=== PATIENT | female | born 1990 | race Caucasian/White ===

== ENCOUNTER 2020-05-29 19:50 | Emergency (ER) | payer OTHER, SELFPAY ==
[2020-05-29 20:02] VITALS: BP 130/87; PULSE 72; RESP 18; TEMP 37; O2SAT 98
[2020-05-29] MEDS: DICYCLOMINE HCL 10 MG CAPSULE 20 MG PO (20:30)
[2020-05-29] MEDS: ONDANSETRON HCL ODT 4 MG TABLET PO (20:30)
[2020-05-29 20:57] LABS: Basophils Absolute Auto 0.03 K/mm3 (0.00-0.10); Basophils Percent Auto 0.3 % (0.0-1.0); Eosinophils Absolute Auto 0.06 K/mm3 (0.02-0.50); Eosinophils Percent Auto 0.7 % (1.0-6.0); Hematocrit 40.5 % (35.0-49.0); Hemoglobin 13.3 g/dL (12.0-15.0); Immature Granulocyte Absolute 0.04 K/mm3 (0.00-0.00); Immature Granulocyte Percent A 0.5 % (0.0-0.0); Lymphocytes Absolute Auto 1.19 K/mm3 (1.10-4.50); Lymphocytes Percent Auto 13.8 % (18.0-42.0); Mean Corpuscular HGB Conc 32.8 g/dL (32.0-36.0); Mean Corpuscular Hemoglobin 28.1 pg (27.0-31.0); Mean Corpuscular Volume 85.4 fL (78.0-102.0); Mean Platelet Volume 11.1 fl (9.2-11.8); Monocytes Absolute Auto 0.76 K/mm3 (0.10-0.90); Monocytes Percent Auto 8.8 % (2.0-11.0); Neutrophils Absolute Auto 6.5 K/mm3 (1.7-7.2); Neutrophils Percent Auto 75.9 % (50.0-70.0); Platelet Count Result 172 K/mm3 (150-420); Red Blood Count 4.74 M/mm3 (4.20-5.40); Red Cell Distribution Width 15.9 % (11.6-14.4); White Blood Count 8.6 K/mm3 (4.8-10.8)
[2020-05-29 21:05] LABS: Appearance Urine Clear (Clear); Blood Urine 3+ (Negative); Color Urine Yellow (Yellow); Glucose Urine UA Negative (Negative); Ketones Urine Negative (Negative); Nitrate Urine Negative (Negative); Protein Urine Trace (Negative); Specific Grav Ur > 1.030 (1.010-1.020); pH Urine 5.5 (5.0-8.0)
[2020-05-29 21:06] LABS: Add Urine Microscopic? YES; Bilirubin Urine Negative (Negative); Leukocyte Esterase Ur Negative (Negative); Squamous Epithelial Cell Urine Many /hpf (Few); Urobilinogen Urine 0.2 mg/dL (0.2-1.0); WBC Urine 0-3 /hpf (0-3)
[2020-05-29 21:07] LABS: Bacteria Urine Trace /hpf
[2020-05-29 21:13] LABS: Alanine Aminotransferase 21 U/L (14-59); Albumin Level 3.5 g/dL (3.4-5.0); Alkaline Phosphatase 76 U/L (46-116); Anion Gap 12 mmol/L (8-16); Aspartate Amino Transferase 14 U/L (15-37); Bilirubin,Total 0.3 mg/dL (0.00-1.00); Blood Urea Nitrogen 13 mg/dL (7-18); Calcium 8.6 mg/dL (8.5-10.1); Carbon Dioxide 25 mmol/L (21-32); Chloride 101 mmol/L (98-108); Estimated CRCL calculation 92 ml/min; Estimated Glomerular Filt Rate > 60; Glucose 99 mg/dL (70-99); Osmolality Calculated 286 mOsm/kg (285-295); Potassium 3.7 mmol/L (3.5-5.1); Sodium 138 mmol/L (136-145)
--- NOTE | 2020-05-29 21:32 | ED.NAVMDI ---
HPI - Nausea/Vomiting/Diarrhea General Chief complaint: Nausea/Vomiting/Diarrhea Stated complaint: possible food poisoning Source: patient Mode of arrival: ambulatory Limitations: no limitations History of Present Illness HPI Narrative: Patient comes in with after having nausea and vomiting at home. She ate out last pm and has had nausea and vomiting. This has since resolved. She now complains of abdominal pain and having frequent loose stools. Abdominal discomfort is moderately severe and ongoing. Cramping abdominal pain is moderately severe and ongoing. Nothing has made this better or worse at home. She has had crampy abdominal pain since last pm, late lat pm. MD elicited complaint: nausea, vomiting, diarrhea and abdominal pain Onset (ago): hour(s) Description of diarrhea: semi-solid Associated nausea: Yes Location of pain: diffuse Pain consistency: intermittent Severity: moderate Quality: cramping Exacerbating factors: none Relieving factors: none Related Data Allergies Allergy/AdvReac Type Severity Reaction Status Date / Time NSAIDS (Non-Steroidal Allergy Severe RENAL Verified 02/03/19 11:49 Anti-Inflamma FAILURE sulfamethoxazole Allergy Unknown Rash Verified 02/03/19 11:49 trimethoprim Allergy Unknown Rash Verified 02/03/19 11:49 Pecan Allergy Intermediate HIVES Uncoded 11/02/18 11:19 Review of Systems Constitutional: Constitutional: Reports no additional constitutional complaints Eyes: Eyes: Reports no additional eye complaints ENT: Reports system reviewed and no additional complaints, except as documented Cardiovascular: Cardiovascular: Reports no additional cardiovascular complaints Respiratory: Respiratory: Reports no additional respiratory complaints Gastrointestinal: Gastrointestinal: Reports no additional gastrointestinal complaints Genitourinary: Genitourinary: Reports no additional female genitourinary complaints Comments: denies urinary symptoms Musculoskeletal: Musculoskeletal: Reports no additional musculoskeletal complaints Integumentary/Breasts: Skin/Breast: Reports system reviewed and no additional complaints, except as docu Neurologic: Reports system reviewed and no additional complaints, except as documented Psychiatric: Psychiatric: Reports no additional psychiatric complaints Endocrine: Endocrine: Reports no additional endocrine complaints Hematologic/Lymphatic: Hematologic/Lymphatic: Reports no additional hematologic/lymphatic complaints Allergic/Immunologic: Allergic/Immunologic: Reports no additional allergic/immunologic complaints PMFSH Past Medical History Medical History Anxiety Depression Genitourinary disorder Decreased kidney function Goiter Surgical History Surgical History H/O adenoidectomy H/O tubal ligation History of lumpectomy Left breast History of tonsillectomy Family History Family History Mother Diabetes mellitus Chronic kidney disease Cervical cancer Father Hypertension Heart disease Hyperlipidemia Social History Social History Gender identity (if verbalized by the patient): Female Sexual Orientation (if Verbalized by the Patient): Straight or Heterosexual Exam Const: Orientation/consciousness: patient oriented x3 HENMT: Head: normal to inspection Ears: external ears normal General nose exam: Normal nares present Face and sinus: normal facial exam Mouth: Yes Normal oral and palatal mucosa present Throat: posterior oropharynx normal Eyes: Conjunctivae: conjunctivae normal Neck: Neck: normal visual inspection Chest: Chest palpation & inspection: normal inspection of the chest Resp: Effort & Inspection: normal respiratory effort Auscultation: clear to auscultation bilaterally Cardio: Rate: regular rate Rhythm: regular r
[2020-05-29 21:41] VITALS: BP 120/80; PULSE 80; RESP 18; TEMP 36.6; O2SAT 98
== END 2020-05-29 21:42 | disposition home or self-care (01) ==
PROVIDERS: Emergency Provider Emergency Medicine; PCP Nurse Practitioner Family
DX: A05.9 Bacterial foodborne intoxication, unspecified (principal)
CPT/HCPCS: 36415; 80053; 81001; 85025; 99283; A9270

== ENCOUNTER 2020-11-21 07:54 | Outpatient (CLI) | payer OTHER, SELFPAY ==
--- NOTE | ~2020-11-21 | MR_ITS ---
EXAMINATION: MR brain/brain stem wo con DATE: 11/21/2020 09:02 INDICATION: Headache. TECHNIQUE: Magnetic resonance imaging (MRI) of the brain and brainstem was performed without intraven ous contrast. Sequences included sagittal and axial T1-weighted FSE, axial diffusion-weighted FS EPI, axial T2*-weighted GRE, axial T2-weighted FLAIR Propeller, and axial T2-weighted Propeller. Apparent diffusion coefficient (ADC) maps were created. COMPARISON: None. FINDINGS: There is no intracranial hemorrhage, acute infarction, or abnormal intracranial mass lesion . The ventricles are normal in size. The orbits are normal. There is mild mucosal thickening in the p aranasal sinuses. The mastoid air cells are normal. IMPRESSION: 1. Normal brain. Reviewed, dictated and finalized at location A. IMPRESSION: 1. Normal brain.
[2020-11-21 08:13] LABS: Basophils Absolute Auto 0.05 K/mm3 (0.00-0.10); Basophils Percent Auto 0.7 % (0.0-1.0); Eosinophils Absolute Auto 0.14 K/mm3 (0.02-0.50); Eosinophils Percent Auto 1.9 % (1.0-6.0); Hematocrit 41.7 % (35.0-49.0); Hemoglobin 14.3 g/dL (12.0-15.0); Immature Granulocyte Absolute 0.02 K/mm3 (0.00-0.00); Immature Granulocyte Percent A 0.3 % (0.0-0.0); Lymphocytes Absolute Auto 2.26 K/mm3 (1.10-4.50); Lymphocytes Percent Auto 30.3 % (18.0-42.0); Mean Corpuscular HGB Conc 34.3 g/dL (32.0-36.0); Mean Corpuscular Hemoglobin 30.6 pg (27.0-31.0); Mean Corpuscular Volume 89.1 fL (78.0-102.0); Mean Platelet Volume 10.3 fl (9.2-11.8); Monocytes Absolute Auto 0.74 K/mm3 (0.10-0.90); Monocytes Percent Auto 9.9 % (2.0-11.0); Neutrophils Absolute Auto 4.2 K/mm3 (1.7-7.2); Neutrophils Percent Auto 56.9 % (50.0-70.0); Platelet Count Result 221 K/mm3 (150-420); Red Blood Count 4.68 M/mm3 (4.20-5.40); Red Cell Distribution Width 12.1 % (11.6-14.4); White Blood Count 7.5 K/mm3 (4.8-10.8)
[2020-11-21 09:08] LABS: Alanine Aminotransferase 24 U/L (14-59); Alkaline Phosphatase 65 U/L (46-116); Anion Gap 9 mmol/L (8-16); Aspartate Amino Transferase 15 U/L (15-37); Bilirubin,Total 0.4 mg/dL (0.00-1.00); Blood Urea Nitrogen 16 mg/dL (7-18); Calcium 9.4 mg/dL (8.5-10.1); Carbon Dioxide 27 mmol/L (21-32); Chloride 106 mmol/L (98-108); Cholesterol 123 mg/dL (0-200); Estimated Glomerular Filt Rate > 60; Glucose 85 mg/dL (70-99); HDL Direct 49 mg/dL (40-60); Iron 60 ug/dL (50-170); LDL Cholesterol Calculated 64 mg/dL (<130); Osmolality Calculated 294 mOsm/kg (285-295); Percent Iron Saturation 19 % (12-57); Potassium 4.5 mmol/L (3.5-5.1); Sodium 142 mmol/L (136-145); Thyroid Stimulating Hormone 1.07 uIU/mL (0.36-3.74); Total Protein 6.9 g/dL (6.4-8.2); Triglycerides 50 mg/dL (0-150); Vitamin B12 437 pg/mL (193-986)
== END 2020-11-21 07:55 | disposition home or self-care (01) ==
PROVIDERS: PCP Physician Assistant; Visit Provider Physician Assistant
DX: R51.9 Headache, unspecified (principal); R53.83 Other fatigue; Z13.220 Encounter for screening for lipoid disorders
CPT/HCPCS: 36415; 70551; 80053; 80061; 82607; 83540; 83550; 84443; 85025

== ENCOUNTER 2020-12-26 09:20 | Outpatient (CLI) | payer OTHER, SELFPAY ==
[2020-12-26 10:34] LABS: Free T4 Free Thyroxine 0.89 ng/dL (0.76-1.46)
[2020-12-29 10:56] LABS: Total Triiodothyronine (T3) 108.4 ng/dL (76-181)
[2020-12-30 06:25] LABS: FSH 8.6 mIU/mL (***)
[2020-12-30 11:59] LABS: Testosterone Total 20 ng/dL (2-45)
[2020-12-30 13:55] LABS: Sex Hormone Binding Globulin 29 nmol/L (17-124)
[2021-01-02 02:16] LABS: Estriol <0.10 ng/mL
== END 2020-12-26 09:21 | disposition home or self-care (01) ==
LOC: CHSLAB 09:21
PROVIDERS: PCP Physician Assistant; Visit Provider Physician Assistant
DX: L83 Acanthosis nigricans (principal); R53.83 Other fatigue
CPT/HCPCS: 36415; 82677; 83001; 84270; 84403; 84439; 84443; 84480

== ENCOUNTER 2021-04-27 09:44 | Outpatient (CLI) | payer OTHER, SELFPAY ==
[2021-04-27 10:16] LABS: Basophils Absolute Auto 0.05 K/mm3 (0.00-0.10); Basophils Percent Auto 0.7 % (0.0-1.0); Eosinophils Absolute Auto 0.11 K/mm3 (0.02-0.50); Eosinophils Percent Auto 1.6 % (1.0-6.0); Hematocrit 42.8 % (35.0-49.0); Hemoglobin 14.5 g/dL (12.0-15.0); Immature Granulocyte Absolute 0.02 K/mm3 (0.00-0.00); Immature Granulocyte Percent A 0.3 % (0.0-0.0); Lymphocytes Absolute Auto 1.75 K/mm3 (1.10-4.50); Lymphocytes Percent Auto 24.8 % (18.0-42.0); Mean Corpuscular HGB Conc 33.9 g/dL (32.0-36.0); Mean Corpuscular Hemoglobin 30.5 pg (27.0-31.0); Mean Corpuscular Volume 89.9 fL (78.0-102.0); Mean Platelet Volume 10.6 fl (9.2-11.8); Monocytes Absolute Auto 0.58 K/mm3 (0.10-0.90); Monocytes Percent Auto 8.2 % (2.0-11.0); Neutrophils Absolute Auto 4.6 K/mm3 (1.7-7.2); Neutrophils Percent Auto 64.4 % (50.0-70.0); Platelet Count Result 205 K/mm3 (150-420); Red Blood Count 4.76 M/mm3 (4.20-5.40); White Blood Count 7.1 K/mm3 (4.8-10.8)
[2021-04-27 10:35] LABS: Add Urine Microscopic? YES; Appearance Urine Sl Cloudy (Clear); Bilirubin Urine Negative (Negative); Blood Urine Negative (Negative); Color Urine Light Yellow (Yellow); Glucose Urine UA Negative (Negative); Ketones Urine Negative (Negative); Leukocyte Esterase Ur Trace (Negative); Nitrate Urine Negative (Negative); Protein Urine Negative (Negative); Urobilinogen Urine 0.2 mg/dL (0.2-1.0); pH Urine 7.5 (5.0-8.0)
[2021-04-27 11:06] LABS: Creatine Kinase 40 U/L (26-192)
[2021-04-27 11:07] LABS: CRP < 0.2 mg/dL (0.0-0.9)
[2021-04-27 11:25] LABS: RBC Urine None seen /hpf (0-2); Squamous Epithelial Cell Urine Few /hpf (Few); WBC Urine 0-3 /hpf (0-3)
[2021-04-27 11:26] LABS: Amorphous Sediment Urine Heavy; Bacteria Urine Trace /hpf
[2021-04-29 13:25] LABS: Aldolase 2.3 U/L (<=8.1)
[2021-04-29 15:59] LABS: Myoglobin, Urine <27 mcg/L (<28)
[2021-04-29 21:52] LABS: SM Antibody <1.0; SM/RNP Antibody <1.0
[2021-04-29 22:59] LABS: Histone Antibody <1.0 U (<1.0)
[2021-04-30 04:20] LABS: Anti Nuclear Antibody Titer 1:40 (Negative)
[2021-04-30 04:51] LABS: Lupus dRVVT 1:1 Mix Interpreta Not Indicated; Lupus dRVVT Screen 43 sec (<=45); PTT-LA Screen 37 sec (<=40)
== END 2021-04-27 09:45 | disposition home or self-care (01) ==
LOC: CHSLAB 09:47
PROVIDERS: PCP Physician Assistant; Visit Provider Internal Medicine Rheumatology
DX: R76.8 Other specified abnormal immunological findings in serum (principal)
CPT/HCPCS: 36415; 81001; 82085; 82550; 83516; 83874; 85025; 85613; 85730; 86038; 86039; 86140; 86225; 86235

== ENCOUNTER 2021-06-15 19:17 | Emergency (ER) | payer OTHER, SELFPAY ==
--- NOTE | 2021-06-15 19:52 | ED.GENADULT ---
HPI - General Adult General Chief complaint: Shortness of Breath/Dyspnea Stated complaint: WEAKNESS,SOB,disoriented Time Seen by Provider: 06/15/21 19:52 Source: patient History of Present Illness HPI narrative: 31 year female with anxiety / depression, pseudotumor cerebri on Diamox presents to the ER with 5 day history of -- not feeling well -- generalized weakness especially of her legs -- chest congestion 5 days ago which has resolved. Patient thinks that her kids had a similar infection passed it on to. No fever chills. No chest pain or shortness of breath no nausea/ vomiting /abdominal pain or diarrhea no headache or focal neuro deficits. Onset (ago): day(s) ( started 5 days ago) Severity: moderate Treatments prior to arrival: none Related Data Home Medications Medication Instructions Recorded Confirmed acetazolamide 1,000 mg PO DAILY 06/15/21 06/15/21 dextroamphetamine-amphetamine 10 mg PO DAILY 06/15/21 06/15/21 Allergies Allergy/AdvReac Type Severity Reaction Status Date / Time NSAIDS (Non-Steroidal Allergy Severe RENAL Verified 06/15/21 19:59 Anti-Inflamma FAILURE sulfamethoxazole Allergy Unknown Rash Verified 06/15/21 19:59 trimethoprim Allergy Unknown Rash Verified 06/15/21 19:59 Pecan Allergy Intermediate HIVES Uncoded 11/02/18 11:19 Review of Systems Review of Systems: All systems reviewed & are unremarkable except as noted in HPI and below Constitutional: Constitutional: Reports as per HPI and Reports no additional constitutional complaints Eyes: Eyes: Reports as per HPI and Reports no additional eye complaints ENT: Reports system reviewed and no additional complaints, except as documented and Reports as per HPI Comments: Generalized weakness. Malaise. Cardiovascular: Cardiovascular: Reports as per HPI and Reports no additional cardiovascular complaints Respiratory: Respiratory: Reports as per HPI and Reports no additional respiratory complaints Gastrointestinal: Gastrointestinal: Reports as per HPI and Reports no additional gastrointestinal complaints Genitourinary: Genitourinary: Reports no additional female genitourinary complaints Musculoskeletal: Musculoskeletal: Reports no additional musculoskeletal complaints and Reports as per HPI Integumentary/Breasts: Skin/Breast: Reports system reviewed and no additional complaints, except as docu and Reports as per HPI Neurologic: Reports system reviewed and no additional complaints, except as documented and Reports as per HPI Psychiatric: Psychiatric: Reports no additional psychiatric complaints and Reports as per HPI Endocrine: Endocrine: Reports no additional endocrine complaints and Reports as per HPI Hematologic/Lymphatic: Hematologic/Lymphatic: Reports no additional hematologic/lymphatic complaints and Reports as per HPI Allergic/Immunologic: Allergic/Immunologic: Reports no additional allergic/immunologic complaints and Reports as per HPI [facility] Past Medical History Medical History Anxiety Depression Genitourinary disorder Decreased kidney function Goiter Surgical History Surgical History H/O adenoidectomy H/O tubal ligation History of lumpectomy Left breast History of tonsillectomy Family History Family History Mother Diabetes mellitus Chronic kidney disease Cervical cancer Father Hypertension Heart disease Hyperlipidemia Social History Social History Gender identity (if verbalized by the patient): Female Sexual Orientation (if Verbalized by the Patient): Straight or Heterosexual Exam Const: General: no acute distress and alert Orientation/consciousness: patient oriented x3 HENMT: Head: normal to inspection Eyes: Conjunctivae: conjunctivae normal Pupils: Equal, ro
[2021-06-15 20:00] VITALS: BP 135/96; PULSE 83; RESP 20; TEMP 37.2; O2SAT 99
[2021-06-15 20:26] LABS: Basophils Absolute Auto 0.02 K/mm3 (0.00-0.10); Basophils Percent Auto 0.3 % (0.0-1.0); Eosinophils Absolute Auto 0.07 K/mm3 (0.02-0.50); Eosinophils Percent Auto 1.2 % (1.0-6.0); Hematocrit 43.1 % (35.0-49.0); Hemoglobin 14.4 g/dL (12.0-15.0); Immature Granulocyte Absolute 0.02 K/mm3 (0.00-0.00); Immature Granulocyte Percent A 0.3 % (0.0-0.0); Lymphocytes Absolute Auto 2.07 K/mm3 (1.10-4.50); Lymphocytes Percent Auto 35.1 % (18.0-42.0); Mean Corpuscular HGB Conc 33.4 g/dL (32.0-36.0); Mean Corpuscular Hemoglobin 29.6 pg (27.0-31.0); Mean Corpuscular Volume 88.7 fL (78.0-102.0); Mean Platelet Volume 11.1 fl (9.2-11.8); Monocytes Percent Auto 8.5 % (2.0-11.0); Neutrophils Absolute Auto 3.2 K/mm3 (1.7-7.2); Neutrophils Percent Auto 54.6 % (50.0-70.0); Platelet Count Result 172 K/mm3 (150-420); Red Blood Count 4.86 M/mm3 (4.20-5.40); Red Cell Distribution Width 11.9 % (11.6-14.4); White Blood Count 5.9 K/mm3 (4.8-10.8)
[2021-06-15 20:31] LABS: Prothrombin Time 10.8 Seconds (9.50-12.10)
[2021-06-15 20:37] LABS: Alanine Aminotransferase 13 U/L (14-59); Albumin Level 3.6 g/dL (3.4-5.0); Alkaline Phosphatase 61 U/L (46-116); Anion Gap 12 mmol/L (8-16); Aspartate Amino Transferase 14 U/L (15-37); Bilirubin,Total 0.3 mg/dL (0.00-1.00); Blood Urea Nitrogen 11 mg/dL (7-18); Carbon Dioxide 20 mmol/L (21-32); Chloride 105 mmol/L (98-108); Estimated Glomerular Filt Rate > 60; Glucose 126 mg/dL (70-99); Osmolality Calculated 285 mOsm/kg (285-295); Potassium 3.3 mmol/L (3.5-5.1); Sodium 137 mmol/L (136-145); Total Protein 6.9 g/dL (6.4-8.2)
[2021-06-15 20:42] LABS: Lactic Acid Reflex 0.8 mmol/L (0.4-2.0)
[2021-06-15 20:45] LABS: Lipase 89 U/L (73-393); Thyroid Stimulating Hormone 2.37 uIU/mL (0.36-3.74)
[2021-06-15 20:46] LABS: Troponin I < 4.0 ng/L (0.00-60.4)
[2021-06-15 20:57] LABS: Influenza A QL RT-PCR Negative (Negative); Influenza B QL RT-PCR Negative (Negative); SARS-CoV-2 RNA PCR Negative (Negative)
[2021-06-15 21:40] LABS: Add Urine Microscopic? NO; Appearance Urine Clear (Clear); Bilirubin Urine Negative (Negative); Blood Urine Negative (Negative); Color Urine Yellow (Yellow); Glucose Urine UA Negative (Negative); Ketones Urine Negative (Negative); Leukocyte Esterase Ur Negative (Negative); Nitrate Urine Negative (Negative); Protein Urine Negative (Negative); Urobilinogen Urine 0.2 mg/dL (0.2-1.0); pH Urine 5.5 (5.0-8.0)
[2021-06-15] MEDS: POTASSIUM CHLORIDE 20 MEQ TABLET PO (21:41)
[2021-06-15 22:03] VITALS: BP 117/84; PULSE 72; RESP 19; TEMP 36.7; O2SAT 98
== END 2021-06-15 22:04 | disposition home or self-care (01) ==
PROVIDERS: Emergency Provider Internal Medicine Critical Care Medicine; PCP Physician Assistant
DX: B34.9 Viral infection, unspecified (principal); E87.6 Hypokalemia; Z20.822 Contact with and (suspected) exposure to COVID-19
CPT/HCPCS: 36415; 80053; 81003; 83605; 83690; 84443; 84484; 85025; 85610; 87502; 99284; A9270; C9803; U0003; U0005

== ENCOUNTER 2021-08-11 14:05 | Outpatient (CLI) | payer OTHER, SELFPAY ==
[2021-08-17 07:22] LABS: Anti Nuclear Antibody Pattern Nuclear, Speckled
== END 2021-08-11 14:06 | disposition home or self-care (01) ==
LOC: CHSLAB 14:11
PROVIDERS: PCP Physician Assistant; Visit Provider Internal Medicine Rheumatology
DX: R76.8 Other specified abnormal immunological findings in serum (principal)
CPT/HCPCS: 36415; 86038; 86039

== ENCOUNTER 2021-08-16 14:00 | Outpatient (CLI) | payer OTHER, SELFPAY ==
--- NOTE | 2021-08-19 11:31 | WPDHOLTEREM ---
Holter/Event Monitor Holter/Event Monitor Date of procedure: 08/16/21 Holter/Event Procedure: 48 Hr Holter Monitor Indications: Palpitations Conclusion: 1. 48 hour holter monitor on 08/16/21. 2. Underlying rhythm is sinus rhythm with sinus arrhythmia, HR range 48-154 bpm; average HR 83 bpm. HR at 154 bpm was at 12:24 pm. 3. There are 4 premature supraventricular complexes, 1 supraventricular couplet. No supraventricular tachycardia. 4. There is 1 premature ventricular complex. No ventricular tachycardia. 5. No sinoatrial or atrioventricular blocks. No signficant pauses greater than 2 seconds. 6. No symptoms available for correlation.
== END 2021-08-16 14:01 | disposition home or self-care (01) ==
LOC: CHSCARD 14:02
PROVIDERS: PCP Physician Assistant; Visit Provider Physician Assistant
DX: R00.2 Palpitations (principal)
CPT/HCPCS: 93225

== ENCOUNTER 2021-08-25 07:59 | Emergency (ER) | payer OTHER, SELFPAY ==
[2021-08-25 08:05] VITALS: BP 126/60; PULSE 120; RESP 18; TEMP 36.8; O2SAT 98
--- NOTE | 2021-08-25 08:23 | ED.ARRPALP ---
HPI - Arrhythmia/Palpitations General Chief Complaint: Arrhythmia/Palpitations Stated Complaint: SOB/ high heart rate/ heart fluttering Time Seen by Provider: 08/25/21 08:24 Source: patient Mode of arrival: ambulatory Limitations: no limitations History of Present Illness complaint: heart racing and palpitations Onset (ago): month(s) (2) Duration: intermittent Severity: moderate Context: occurred during rest Associated symptoms: shortness of breath Related Data Home Medications Medication Instructions Recorded Confirmed bupropion HCl 150 mg 24 hr tablet, 150 tablet PO DAILY 08/25/21 08/25/21 extended release Allergies Allergy/AdvReac Type Severity Reaction Status Date / Time NSAIDS (Non-Steroidal Allergy Severe RENAL Verified 08/25/21 08:30 Anti-Inflamma FAILURE sulfamethoxazole Allergy Unknown Rash Verified 08/25/21 08:30 trimethoprim Allergy Unknown Rash Verified 08/25/21 08:30 Pecan Allergy Intermediate HIVES Uncoded 11/02/18 11:19 Review of Systems Review of Systems: All systems reviewed & are unremarkable except as noted in HPI and below Cardiovascular: Cardiovascular: Reports as per HPI and Denies chest pain Gastrointestinal: Gastrointestinal: Denies nausea and Denies vomiting PMFSH Past Medical History Medical History Anxiety Depression Genitourinary disorder Decreased kidney function Goiter Surgical History Surgical History H/O adenoidectomy H/O tubal ligation History of lumpectomy Left breast History of tonsillectomy Family History Family History Mother Diabetes mellitus Chronic kidney disease Cervical cancer Father Hypertension Heart disease Hyperlipidemia Social History Social History (Updated 08/25/21 @ 10:07 by Jl Orozco MD) Smoking status: Current every day smoker Tobacco type: e-cigarettes/vaping Substance use: current Substance use type: marijuana Gender identity (if verbalized by the patient): Female Sexual Orientation (if Verbalized by the Patient): Straight or Heterosexual Exam Const: General: healthy appearing, no acute distress and alert Nutritional Appearance: well nourished Orientation/consciousness: patient oriented x3 Limitations: no limitations Other: Female tech in room during examination. HENMT: Head: normal to inspection Ears: external ears normal Eyes: Conjunctivae: conjunctivae normal Pupils: Equal, round and reactive pupils present EOM: EOMs intact bilaterally Neck: Neck: normal visual inspection Resp: Effort & Inspection: normal respiratory effort Auscultation: clear to auscultation bilaterally Cardio: Rate: tachycardic Rhythm: regular rhythm GI: GI Palp: Yes Soft to palpation and No Tenderness to palpation present (GI) Auscultation: normal bowel sounds Back/Spine/Pelvis: Cervical Spine: cervical ROM normal Thoracic/Lumbar Spine: thoraco-lumbar ROM normal Skin: General skin exam: normal color Rashes: no rashes Neuro: General: patient oriented x3, moves all extremities, no focal motor deficits and CN's II-XI intact bilaterally Speech: normal speech Gait exam (Neuro): Normal gait present Extrem: General: normal to inspection and no clubbing, cyanosis or edema Psych: Mental Status: mental status grossly normal Affect: normal affect Attitude: cooperative Course Vital Signs Vital signs: Vital Signs Temperature 36.8 C 08/25/21 08:05 Pulse Rate 120 H 08/25/21 08:05 Respiratory Rate 18 08/25/21 08:05 Blood Pressure 126/60 08/25/21 08:05 Pulse Oximetry 98 08/25/21 08:05 Oxygen Delivery Room Air 08/25/21 08:05 Temperature 36.8 C 08/25/21 08:05 Pulse Rate 92 08/25/21 10:08 Respiratory Rate 16 08/25/21 10:06 Blood Pressure 119/68 08/25/21 10:08 Pulse Oximetry 99 08/25/21 10:06 Oxygen Delivery Room A
--- NOTE | 2021-08-25 08:32 | ECG_ITS ---
Measurements Intervals [place] Rate: 117 P: 69 SD: 156 QRS: 64 QRSD: 86 T: 49 QT: 307 QTc: 429 Interpretive Statements SINUS TACHYCARDIA BORDERLINE ECG NO PREVIOUS ECG AVAILABLE FOR COMPARISON Electronically Signed On 08-25-2021 15:06:08 CDT by Ramu Paz M.D.
[2021-08-25 08:53] LABS: Basophils Absolute Auto 0.02 K/mm3 (0.00-0.10); Basophils Percent Auto 0.4 % (0.0-1.0); Eosinophils Absolute Auto 0.02 K/mm3 (0.02-0.50); Eosinophils Percent Auto 0.4 % (1.0-6.0); Hematocrit 40.6 % (35.0-49.0); Hemoglobin 13.3 g/dL (12.0-15.0); Immature Granulocyte Absolute 0.02 K/mm3 (0.00-0.00); Immature Granulocyte Percent A 0.4 % (0.0-0.0); Immature Platelet Fraction Pct 4.4 % (1.0-7.0); Lymphocytes Percent Auto 9.1 % (18.0-42.0); Mean Corpuscular HGB Conc 32.8 g/dL (32.0-36.0); Mean Corpuscular Hemoglobin 30.2 pg (27.0-31.0); Mean Corpuscular Volume 92.3 fL (78.0-102.0); Mean Platelet Volume 11.2 fl (9.2-11.8); Monocytes Percent Auto 12.7 % (2.0-11.0); Neutrophils Absolute Auto 4.3 K/mm3 (1.7-7.2); Platelet Count Result 124 K/mm3 (150-420); Red Cell Distribution Width 11.9 % (11.6-14.4); White Blood Count 5.5 K/mm3 (4.8-10.8)
[2021-08-25 09:10] LABS: Amphetamine Screen Urine Negative (Negative); Barbiturate Screen Urine Negative (Negative); Benzodiazepines Screen Urine Negative (Negative); Cannabinoid Screen Urine Positive (Negative); Cocaine Screen Urine Negative (Negative); Methadone Screen Urine Negative (Negative); Opiate Screen Urine Negative (Negative); Phencyclidine Screen Urine Negative (Negative)
[2021-08-25 09:17] LABS: Alanine Aminotransferase 17 U/L (14-59); Albumin Level 3.8 g/dL (3.4-5.0); Alkaline Phosphatase 59 U/L (46-116); Anion Gap 8 mmol/L (8-16); Aspartate Amino Transferase 13 U/L (15-37); Bilirubin,Total 0.3 mg/dL (0.00-1.00); Blood Urea Nitrogen 10 mg/dL (7-18); Carbon Dioxide 25 mmol/L (21-32); Chloride 105 mmol/L (98-108); Estimated CRCL calculation 94 ml/min; Estimated Glomerular Filt Rate > 60; Glucose 84 mg/dL (70-99); Osmolality Calculated 284 mOsm/kg (285-295); Potassium 4.1 mmol/L (3.5-5.1); Sodium 138 mmol/L (136-145); Thyroid Stimulating Hormone 0.51 uIU/mL (0.36-3.74); Total Protein 6.8 g/dL (6.4-8.2); Troponin I < 4.0 ng/L (0.00-60.4)
[2021-08-25 10:06] VITALS: BP 121/67; PULSE 108; RESP 16; O2SAT 99
[2021-08-25 10:08] VITALS: BP 119/68; PULSE 92
== END 2021-08-25 10:09 | disposition home or self-care (01) ==
PROVIDERS: Emergency Provider Emergency Medicine; PCP Physician Assistant
DX: R00.0 Tachycardia, unspecified (principal)
CPT/HCPCS: 36415; 80053; 80307; 83735; 84443; 84484; 85025; 85055; 93005; 99284; A9270

== ENCOUNTER 2022-07-16 20:39 | Emergency (ER) | payer OTHER, SELFPAY ==
[2022-07-16 20:40] VITALS: BP 144/90; PULSE 68; RESP 18; TEMP 37; O2SAT 100
--- NOTE | 2022-07-16 20:51 | ECG_ITS ---
Measurements Intervals [place] Rate: 81 P: 43 CT: 168 QRS: 11 QRSD: 88 T: 22 QT: 380 QTc: 444 Interpretive Statements SINUS RHYTHM VOLTAGE CRITERIA FOR LVH MINIMAL Q WAVES- HIGH LATERAL LEADS BORDERLINE ECG COMPARED TO ECG 08/25/2021 08:20:34 SINUS RHYTHM NOW PRESENT Electronically Signed On 07-17-2022 8:08:09 CDT by Obie Julio D.O.
[2022-07-16 21:00] VITALS: BP 133/92; PULSE 74; RESP 17; RESP 18; TEMP 37.3; O2SAT 100
[2022-07-16] MEDS: ONDANSETRON INJ 4 MG/2 ML VIAL IV PUSH (21:56)
[2022-07-16] MEDS: SODIUM CHLORIDE 0.9% IV 1,000 ML 999 ML IV CONT (21:58)
[2022-07-16 22:01] LABS: Basophils Absolute Auto 0.06 K/mm3 (0.00-0.10); Basophils Percent Auto 0.8 % (0.0-1.0); Eosinophils Absolute Auto 0.12 K/mm3 (0.02-0.50); Eosinophils Percent Auto 1.6 % (1.0-6.0); Hematocrit 40.9 % (35.0-49.0); Hemoglobin 13.7 g/dL (12.0-15.0); Immature Granulocyte Absolute 0.03 K/mm3 (0.00-0.00); Immature Granulocyte Percent A 0.4 % (0.0-0.0); Lymphocytes Absolute Auto 2.47 K/mm3 (1.10-4.50); Mean Corpuscular HGB Conc 33.5 g/dL (32.0-36.0); Mean Corpuscular Hemoglobin 30.2 pg (27.0-31.0); Mean Corpuscular Volume 90.3 fL (78.0-102.0); Mean Platelet Volume 11.3 fl (9.2-11.8); Monocytes Absolute Auto 0.56 K/mm3 (0.10-0.90); Monocytes Percent Auto 7.3 % (2.0-11.0); Neutrophils Absolute Auto 4.5 K/mm3 (1.7-7.2); Neutrophils Percent Auto 57.9 % (50.0-70.0); Platelet Count Result 219 K/mm3 (150-420); Red Blood Count 4.53 M/mm3 (4.20-5.40); Red Cell Distribution Width 11.5 % (11.6-14.4); White Blood Count 7.7 K/mm3 (4.8-10.8)
[2022-07-16 22:03] LABS: Appearance Urine Clear (Clear); Bilirubin Urine Negative (Negative); Blood Urine 1+ (Negative); Color Urine Light Yellow (Yellow); Glucose Urine UA Negative (Negative); Ketones Urine Negative (Negative); Leukocyte Esterase Ur Negative LEU/UL (Negative); Nitrate Urine Negative (Negative); Protein Urine Negative (Negative); Urobilinogen Urine 0.2 mg/dL (0.2-1.0); pH Urine 7.5 (5.0-8.0)
[2022-07-16 22:05] LABS: Pregnancy On Board Control Positive; Urine Pregnancy Test Negative
--- NOTE | 2022-07-16 22:14 | PC.NURSE ---
pt refused ordered Xanax. pt stated, I have to drive home so I don't want to take the Xanax because it might make me sleepy and i don't want to wake my kids and to come get me.
[2022-07-16 22:18] LABS: Add Urine Microscopic? YES
[2022-07-16 22:19] LABS: Amorphous Sediment Urine Few; RBC Urine 0-2 /hpf (0-2); Squamous Epithelial Cell Urine Few /hpf (Few)
[2022-07-16 22:20] LABS: Alanine Aminotransferase 15 U/L (14-59); Alkaline Phosphatase 69 U/L (46-116); Anion Gap 8 mmol/L (8-16); Aspartate Amino Transferase 22 U/L (15-37); Bilirubin,Total 0.2 mg/dL (0.00-1.00); Blood Urea Nitrogen 12 mg/dL (7-18); Calcium 9.2 mg/dL (8.5-10.1); Carbon Dioxide 28 mmol/L (21-32); Chloride 104 mmol/L (98-108); Estimated CRCL calculation 85 ml/min; Estimated Glomerular Filt Rate > 60; Glucose 92 mg/dL (70-99); Osmolality Calculated 289 mOsm/kg (285-295); Potassium 3.9 mmol/L (3.5-5.1); Sodium 140 mmol/L (136-145); Total Protein 7.3 g/dL (6.4-8.2)
--- NOTE | 2022-07-16 22:39 | ED.NAVMDI ---
HPI - Nausea/Vomiting/Diarrhea General Chief complaint: Nausea/Vomiting/Diarrhea Stated complaint: Dizzyness/Nausea Source: patient and family Mode of arrival: ambulatory History of Present Illness HPI Narrative: Patient presents with some feeling of lightheadedness with nausea with no abdominal pain no fever chills does have a chronic intracerebral process that she takes Lasix for and patient states that she feels lightheaded with dehydration tries to keep up with fluids and drinking enough of them. Otherwise no chest pain no abdominal pain no fever chills, has felt nauseated with no vomiting no diarrhea constipation. MD elicited complaint: nausea and vomiting Onset (ago): day(s) Related Data Home Medications Medication Instructions Recorded Confirmed furosemide 20 mg tablet 40 mg PO HS 07/16/22 07/16/22 potassium chloride 20 mEq 20 meq PO HS 07/16/22 07/16/22 tablet,extended release(part/cryst) (Klor-Con M) Allergies Allergy/AdvReac Type Severity Reaction Status Date / Time NSAIDS (Non-Steroidal Allergy Severe RENAL Verified 07/16/22 22:07 Anti-Inflamma FAILURE sulfamethoxazole Allergy Unknown Rash Verified 07/16/22 22:07 trimethoprim Allergy Unknown Rash Verified 07/16/22 22:07 Pecan Allergy Intermediate HIVES Uncoded 11/02/18 11:19 Review of Systems Review of Systems: All systems reviewed & are unremarkable except as noted in HPI and below PMFSH Past Medical History Medical History Anxiety Depression Genitourinary disorder Decreased kidney function Goiter Surgical History Surgical History H/O adenoidectomy H/O tubal ligation History of lumpectomy Left breast History of tonsillectomy Family History Family History Mother Diabetes mellitus Chronic kidney disease Cervical cancer Father Hypertension Heart disease Hyperlipidemia Social History Social History Smoking status: Current every day smoker Tobacco type: e-cigarettes/vaping Substance use: current Substance use type: marijuana Gender identity (if verbalized by the patient): Female Sexual Orientation (if Verbalized by the Patient): Straight or Heterosexual Exam Const: General: healthy appearing Nutritional Appearance: well nourished Orientation/consciousness: patient oriented x3 Limitations: no limitations HENMT: Head: normal to inspection Eyes: Conjunctivae: conjunctivae normal Pupils: Equal, round and reactive pupils present EOM: EOMs intact bilaterally Neck: Neck: normal visual inspection and no lymphadenopathy Chest: Chest palpation & inspection: normal inspection of the chest Resp: Effort & Inspection: normal respiratory effort Cardio: Rate: regular rate Rhythm: regular rhythm GI: GI Palp: Yes Soft to palpation Auscultation: normal bowel sounds : General: Yes bladder normal to palpation Urinary Catheter: Urinary Catheter: patent and draining Back/Spine/Pelvis: Back: no CVA tenderness Skin: General skin exam: normal color Rashes: no rashes Wounds: no wounds Neuro: General: patient oriented x3 Extrem: General: normal to inspection and no clubbing, cyanosis or edema Psych: Mental Status: mental status grossly normal Affect: normal affect Course Course Emergency Course: Labs and urine reviewed with patient the patient did receive IV fluids and IV Zofran and symptoms have improved EKG was reviewed with patient blood pressure stable. Vital Signs Vital signs: Vital Signs Temperature 37.0 C 07/16/22 20:40 Pulse Rate 68 07/16/22 20:40 Respiratory Rate 18 07/16/22 20:40 Blood Pressure 144/90 H 07/16/22 20:40 Pulse Oximetry 100 07/16/22 20:40 Oxygen Delivery Room Air 07/16/22 20:40 Temperature 37.3 C 07/16/22 21:00 Pulse Rate
[2022-07-16 23:12] VITALS: BP 119/79; PULSE 67; RESP 17; TEMP 36.9; O2SAT 99
== END 2022-07-16 23:14 | disposition home or self-care (01) ==
PROVIDERS: Emergency Provider Emergency Medicine; PCP Physician Assistant
DX: E86.0 Dehydration (principal); F17.290 Nicotine dependence, other tobacco product, uncomplicated
CPT/HCPCS: 36415; 80053; 81001; 81025; 85025; 93005; 96361; 96374; 99284; J2405; J7030